=== PATIENT | female | born 2000 ===

== ENCOUNTER 2018-06-25 12:07 | Outpatient (CLI) | payer OTHER ==
--- NOTE | 2018-06-25 13:18 | ULT ---
ULTRASOUND OB COMPLETE: Date: 06/25/18 HISTORY: Size and dates. COMPARISON: None. FINDINGS: Real-time Dejesus scale with color Doppler and spectral analysis of the gravid uterus was performed via transabdominal approach. There is a single, viable intrauterine , with average ultrasound age of 18 weeks and 5 days. Estimated date of delivery is 11/21/18. The placenta is anterior. Amniotic fluid index normal. Appro ximately 15.0 cm. heart rate documented at 150 bpm. Anatomy: Skull, face, spine, neck, four chamber heart, lungs, diaphragm, kidneys, three vessel cord, bladder, and extremities are all normal. Biometry: BPD: 4.26 cm, 18 weeks/6 days HC: 15.2 cm, 18 weeks/2 days AC: 13.68 cm, 19 weeks/1 day FL: 2.91 cm, 19 weeks/0 days Estimated weight is 9 oz., 4.4 percentile. IMPRESSION: 1. Single, viable intrauterine , average ultrasound age of 18 weeks and 5 days. Estimated d ate of delivery is 11/21/18. 2. Slightly decreased estimated weight of 9 oz., 4.4 percentile. POS: [facility]
== END 2018-06-25 12:08 | disposition home or self-care (01) ==
LOC: NAV ULT 12:07
PROVIDERS: ATTEND Family Medicine
DX: Z34.02 Encounter for supervision of normal first pregnancy, second trimester (principal); Z3A.18 18 weeks gestation of pregnancy
CPT/HCPCS: 76805